=== PATIENT | female | born 1960 | race Caucasian/White ===

== ENCOUNTER 2016-11-04 23:42 | Emergency (ER) | payer OTHER ==
[~2016-11-04] VITALS: Ht 167.6 cm; Wt 91.6 kg
[2016-11-05 01:43] VITALS: BP 116/69
== END 2016-11-05 01:43 | disposition home or self-care (01) ==
LOC: ED 23:42
DX: S05.11XA Contusion of eyeball and orbital tissues, right eye, initial encounter (principal); G62.9 Polyneuropathy, unspecified; M19.90 Unspecified osteoarthritis, unspecified site; F10.129 Alcohol abuse with intoxication, unspecified; Y04.8XXA Assault by other bodily force, initial encounter; Y93.89 Activity, other specified; Y92.89 Other specified places as the place of occurrence of the external cause; Y99.8 Other external cause status

== ENCOUNTER 2017-08-09 19:25 | Emergency (ER) | payer OTHER ==
[~2017-08-09] VITALS: Ht 167.6 cm; Wt 90.7 kg
[2017-08-09 19:31] VITALS: Ht 167.6 cm; Wt 90.7 kg
[2017-08-09 21:28] VITALS: BP 126/66
== END 2017-08-09 21:28 | disposition home or self-care (01) ==
LOC: ED 19:25
DX: S01.81XA Laceration without foreign body of other part of head, initial encounter (principal); E11.9 Type 2 diabetes mellitus without complications; M19.90 Unspecified osteoarthritis, unspecified site; X58.XXXA Exposure to other specified factors, initial encounter; Y93.89 Activity, other specified; Y92.89 Other specified places as the place of occurrence of the external cause; Y99.8 Other external cause status
CPT/HCPCS: J2001

== ENCOUNTER 2018-04-04 23:36 | Inpatient (IN) | payer OTHER ==
[~2018-04-04] VITALS: Ht 167.6 cm; Wt 86.2 kg
[2018-04-05 00:24] LABS: BASOPHIL % 0.1 % (0-2); RED CELL DISTRIBUTION WIDTH 13.7 % (11.5-14.5)
[2018-04-05 00:25] LABS: PLATELET COUNT 98 x10^3mcL (130-400)
[2018-04-05 00:39] LABS: CARBON DIOXIDE 23.7 mmol/L (21-32); CHLORIDE SERUM 93 mmol/L (98-107); GFR1 > 60 mL/min; GLUCOSE SERUM 188 mg/dL (74-106); POTASSIUM SERUM 3.1 mmol/L (3.5-5.1); SODIUM SERUM 127 mmol/L (136-145)
[2018-04-05 00:42] LABS: UA SPECIFIC GRAVITY 1.025 (1.005-1.035); microscopic required? YES; urine erythrocyte 2+ (NEGATIVE)
[2018-04-05 00:43] LABS: ALBUMIN 3.4 g/dL (3.4-5.0); ALKALINE PHOSPHATASE 119 U/L (46-116); ALT/SGPT 56 U/L (14-59); AST/SGOT 55 U/L (15-37); BILIRUBIN TOTAL 1.7 mg/dL (0.20-1.00); TOTAL PROTEIN, SERUM 8.5 g/dL (6.4-8.2)
[2018-04-05 00:44] LABS: CHOLESTEROL 102 mg/dL (<200); HDL CHOLESTEROL 27 mg/dL (40-60)
[2018-04-05 02:36] LABS: T3 TOTAL 1.53 ng/mL
[2018-04-05 03:01] VITALS: BP 112/52
[2018-04-05 03:01] LABS: MAGNESIUM 1.6 mg/dL (1.8-2.4); PHOSPHOROUS 2.7 mg/dL (2.5-4.9)
[2018-04-05 03:10] LABS: FREE T4 1.53 ng/dL (0.76-1.46); FREE THYROXINE INDEX 2.8 ug/dL (1.4-4.5); T4(THYROXINE) 8.6 ug/dL (4.7-13.3)
[2018-04-05 03:14] LABS: CHOLESTEROL/HDL RATIO 3.5
[2018-04-05 05:28] VITALS: BP 104/61
[2018-04-05 05:52] LABS: AMPHETAMINE QUAL UR POSITIVE (See below)
[2018-04-05 07:17] LABS: BILIRUBIN DIRECT 1.09 mg/dL (0.0-0.2); BILIRUBIN TOTAL 2.2 mg/dL (0.20-1.00)
[2018-04-05 07:30] LABS: CARBON DIOXIDE 23.3 mmol/L (21-32); CHLORIDE SERUM 97 mmol/L (98-107); CREATININE SERUM 0.9 mg/dL (0.6-1.0); GFR1 > 60 mL/min; GLUCOSE SERUM 125 mg/dL (74-106); POTASSIUM SERUM 3.4 mmol/L (3.5-5.1); SODIUM SERUM 132 mmol/L (136-145)
[2018-04-05 09:19] LABS: BASOPHIL % 0.1 % (0-2); RED CELL DISTRIBUTION WIDTH 14.4 % (11.5-14.5)
[2018-04-05 09:20] LABS: PLATELET COUNT 78 x10^3mcL (130-400)
[2018-04-05 09:41] VITALS: BP 100/56
[2018-04-05 17:18] VITALS: BP 96/57
[2018-04-05 21:24] VITALS: BP 92/55
[2018-04-06 05:57] VITALS: BP 101/61
[2018-04-06 06:27] LABS: CHLORIDE SERUM 108 mmol/L (98-107); CREATININE SERUM 0.8 mg/dL (0.6-1.0); GFR1 > 60 mL/min; GLUCOSE SERUM 163 mg/dL (74-106); MAGNESIUM 1.8 mg/dL (1.8-2.4); PHOSPHOROUS 2.5 mg/dL (2.5-4.9); POTASSIUM SERUM 3.6 mmol/L (3.5-5.1); SODIUM SERUM 140 mmol/L (136-145)
[2018-04-06 07:43] LABS: RED CELL DISTRIBUTION WIDTH 12.8 % (11.5-14.5)
[2018-04-06 07:45] LABS: PLATELET COUNT 73 x10^3mcL (130-400)
[2018-04-06 10:04] VITALS: BP 101/61
[2018-04-06 10:22] LABS: BAND NEUTROPHIL 15 % (0-10); BASOPHIL 0 % (0-2); MONOCYTE 13 % (0-7); PLATELET MORPHOLOGY LARGE PLATELET SEEN; SEGMENTED NEUTROPHILS 65 % (37-75); rbc morphology (normal/abnorm) NORMAL (NORMAL)
[2018-04-06 11:50] LABS: BILIRUBIN DIRECT 1.36 mg/dL (0.0-0.2); BILIRUBIN TOTAL 1.8 mg/dL (0.20-1.00); TOTAL PROTEIN, SERUM 6.7 g/dL (6.4-8.2)
[2018-04-06 11:51] LABS: ALBUMIN 2.5 g/dL (3.4-5.0)
[2018-04-06 13:42] VITALS: Ht 167.6 cm; Wt 86.2 kg
[2018-04-06 17:43] VITALS: BP 100/54
[2018-04-06 20:34] VITALS: BP 115/74
[2018-04-07 05:35] VITALS: BP 125/80
[2018-04-07 06:48] LABS: CALCIUM 8.3 mg/dL (8.5-10.1); CARBON DIOXIDE 25.3 mmol/L (21-32); CHLORIDE SERUM 103 mmol/L (98-107); CREATININE SERUM 0.7 mg/dL (0.6-1.0); GFR1 > 60 mL/min; GLUCOSE SERUM 114 mg/dL (74-106); MAGNESIUM 1.5 mg/dL (1.8-2.4); PHOSPHOROUS 2.7 mg/dL (2.5-4.9); POTASSIUM SERUM 3.5 mmol/L (3.5-5.1); SODIUM SERUM 137 mmol/L (136-145)
[2018-04-07 09:10] VITALS: BP 118/72
[2018-04-07 09:31] LABS: BASOPHIL % 0.2 % (0-2); PLATELET COUNT 84 x10^3mcL (130-400); RED CELL DISTRIBUTION WIDTH 14.2 % (11.5-14.5)
[2018-04-07 15:16] VITALS: BP 129/81
[2018-04-07 20:55] VITALS: BP 129/76
[2018-04-08 04:57] VITALS: BP 130/76
[2018-04-08 06:56] LABS: CALCIUM 8.9 mg/dL (8.5-10.1); CHLORIDE SERUM 101 mmol/L (98-107); CREATININE SERUM 0.8 mg/dL (0.6-1.0); GFR1 > 60 mL/min; GLUCOSE SERUM 106 mg/dL (74-106); POTASSIUM SERUM 3.3 mmol/L (3.5-5.1); SODIUM SERUM 135 mmol/L (136-145)
[2018-04-08 07:34] LABS: BASOPHIL % 0.1 % (0-2); PLATELET COUNT 104 x10^3mcL (130-400); RED CELL DISTRIBUTION WIDTH 14.3 % (11.5-14.5)
[2018-04-08 08:26] VITALS: BP 108/54
[2018-04-08] MEDS ORDERED: LEVOFLOXACIN750 M1 PO (09:12)
[2018-04-08] MEDS ORDERED: CULTURELLE1 EACH PO (09:13)
[2018-04-08 09:36] VITALS: BP 108/54
== END 2018-04-08 12:14 | disposition home or self-care (01) | DRG 720 ==
LOC: ED 23:36 → MU 04-05 01:33
PROVIDERS: Emergency Medicine; Internal Medicine
DX: A41.9 Sepsis, unspecified organism (principal); N17.0 Acute kidney failure with tubular necrosis; E83.42 Hypomagnesemia; E87.1 Hypo-osmolality and hyponatremia; D69.6 Thrombocytopenia, unspecified; N39.0 Urinary tract infection, site not specified; E87.6 Hypokalemia; E80.6 Other disorders of bilirubin metabolism; Z96.652 Presence of left artificial knee joint; F10.20 Alcohol dependence, uncomplicated; Y90.9 Presence of alcohol in blood, level not specified; D50.9 Iron deficiency anemia, unspecified; B96.20 Unspecified Escherichia coli [E. coli] as the cause of diseases classified elsewhere; F15.10 Other stimulant abuse, uncomplicated; M19.90 Unspecified osteoarthritis, unspecified site; Z59.0 Homelessness; Z68.25 Body mass index [BMI] 25.0-25.9, adult
CPT/HCPCS: 82962; 83880; 84439; 87804; G0480; J0696; J1956; J2405; J2543; J3411; J3475; J3490; J7030; Q0092; Q9967

== ENCOUNTER 2018-04-13 19:57 | Emergency (ER) | payer OTHER ==
[~2018-04-13] VITALS: Ht 167.6 cm; Wt 84.5 kg
[~2018-04-13 19:57] MED LIST: CULTURELLE1 EACH PO; LEVOFLOXACIN750 M1 PO
[2018-04-13 20:00] VITALS: Ht 167.6 cm; Wt 84.5 kg
[2018-04-13 20:47] LABS: PLATELET COUNT 185 x10^3mcL (130-400); RED CELL DISTRIBUTION WIDTH 13.8 % (11.5-14.5)
[2018-04-13 20:50] LABS: CALCIUM 8.9 mg/dL (8.5-10.1); CARBON DIOXIDE 28.8 mmol/L (21-32); CHLORIDE SERUM 101 mmol/L (98-107); CREATININE SERUM 1.1 mg/dL (0.6-1.0); GFR1 55 mL/min; GLUCOSE SERUM 164 mg/dL (74-106); POTASSIUM SERUM 3.3 mmol/L (3.5-5.1); SODIUM SERUM 138 mmol/L (136-145)
[2018-04-13 20:56] LABS: ALKALINE PHOSPHATASE 166 U/L (46-116); ALT/SGPT 90 U/L (14-59); AST/SGOT 117 U/L (15-37); BILIRUBIN TOTAL 1.2 mg/dL (0.20-1.00); TOTAL PROTEIN, SERUM 8.2 g/dL (6.4-8.2)
[2018-04-13 21:00] LABS: ALBUMIN 3.1 g/dL (3.4-5.0)
[2018-04-13 21:28] LABS: microscopic required? NO
[2018-04-13 22:02] LABS: UA SPECIFIC GRAVITY >=1.030 (1.005-1.035); urine erythrocyte NEGATIVE (NEGATIVE)
[2018-04-13 22:11] LABS: AMPHETAMINE QUAL UR POSITIVE (See below)
[2018-04-13 23:14] VITALS: BP 117/57
== END 2018-04-13 23:14 | disposition home or self-care (01) ==
LOC: ED 19:57
PROVIDERS: Emergency Medicine
DX: M79.10 Myalgia, unspecified site (principal); R53.1 Weakness; N39.0 Urinary tract infection, site not specified; E11.9 Type 2 diabetes mellitus without complications; E11.40 Type 2 diabetes mellitus with diabetic neuropathy, unspecified; M19.90 Unspecified osteoarthritis, unspecified site; Z98.890 Other specified postprocedural states
CPT/HCPCS: 36415; 87804; G0480

== ENCOUNTER 2018-05-13 15:51 | Emergency (ER) | payer OTHER ==
[~2018-05-13] VITALS: Ht 167.6 cm; Wt 83.5 kg
[2018-05-13 16:01] VITALS: Ht 167.6 cm; Wt 83.5 kg
[2018-05-13 18:40] VITALS: BP 148/75
== END 2018-05-13 18:41 | disposition home or self-care (01) ==
LOC: ED 15:51
DX: S00.83XA Contusion of other part of head, initial encounter (principal); E11.9 Type 2 diabetes mellitus without complications; Z98.890 Other specified postprocedural states; M19.90 Unspecified osteoarthritis, unspecified site; Y04.8XXA Assault by other bodily force, initial encounter; Y93.89 Activity, other specified; Y92.89 Other specified places as the place of occurrence of the external cause; Y99.8 Other external cause status